=== PATIENT | male | born 1985 | race African-American/Black ===

== ENCOUNTER 2019-07-19 03:34 | Inpatient (IN) | payer OTHER ==
[~2019-07-19] VITALS: Ht 177.8 cm; Wt 145.9 kg
[2019-07-19] VITALS (12 sets, daily range): BP systolic 117–155; BP diastolic 61–100
--- NOTE | ~2019-07-19 | H ---
[facility] [place] [address] HISTORY AND PHYSICAL Name: BRANDON WASHINGTON Room #: 211-P [facility] Tru MAlvin#: [id number] Admission: 07/19/19 Attend Phys: Geovani Gaspar MD, Discharge: Date of : 85 Report #: [id number] THIS REPORT FOR: //name// CC: FAM unknown Geovani Gaspar DATE OF SERVICE: 07/19/2019 HISTORY OF PRESENT ILLNESS: The patient is a 33-year-old -[place] male, who comes to the Emergency Room, brought in by his significant other girlfriend. He does not have prior cardiac history or history of hypertension. He denies tobacco or other illicit drug usage. He was having sexual relations and subsequently he suddenly became short of breath, tachycardic and involved chest pain. This persisted and brought into the Emergency Room by his girlfriend with an inferior wall current of injury. He takes only amlodipine for hypertension. 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 He is not aware that he has elevated cholesterol. He does not have a significant family history of coronary artery disease and is a relatively young, moderately overweight male. Perhaps a slight decrease in exercise tolerance recently. His blood sugar is elevated here in the Emergency Room 145, his H and H are 15 and 46, his creatinine is 1.4. He will be taken emergently to the catheterization lab. He is having a moderate amount of chest discomfort. Aspirin, Lipitor 80 and heparin bolus have been initiated. PAST MEDICAL HISTORY: Positive only for hypertension. SOCIAL HISTORY: Single. No tobacco use. He denies any illicit drug use. 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 FAMILY HISTORY: Negative for coronary artery disease. ALLERGIES: No known drug allergies. REVIEW OF SYSTEMS: Essentially negative except for stated above. PHYSICAL EXAMINATION: VITAL SIGNS: Blood pressure 140s-150s/80s, pulse was 80s-90s. HEENT: Eyes reveal xanthelasmas. Pharynx is clear. NECK: Shows preserved upstrokes without JVD or bruits. LUNGS: Clear. CARDIOVASCULAR: Regular rate and rhythm, S1, S2 without significant murmur or gallop. ABDOMEN: Moderately obese, nontender. EXTREMITIES: Reveal no edema. Distal pulses are intact. NEUROLOGIC: Nonfocal. SKIN: Warm and dry without xanthoma or ulcer. [facility] [address] [place] [address] HISTORY AND PHYSICAL Name: BRANDON WASHINGTON Room #: 211-P [facility] Tru Mor[place]aya#: [id number] Admission: 07/19/19 Attend Phys: Geovani Gaspar MD, Discharge: Date of : 85 Report #: [id number] MUSCULOSKELETAL: No gross joint deformity. ASSESSMENT: 1. Acute inferior wall myocardial infarction. 2. Hypertension. 3. Elevated blood sugars. Suspect possible underlying diabetes. 4. Suspected hypercholesterolemia. RECOMMENDATIONS AND PLAN: As stated above, aspirin, heparin. Lipitor 80 has been initiated. We will proceed emergently the catheterization lab for possible diagnostic evaluation and possible intervention. Risks, benefits and alternatives were discussed with the patient. By: 0550 0624 /nt
--- NOTE | ~2019-07-19 | D ---
[facility] [place] [address] DISCHARGE SUMMARY Name: BRANDON WASHINGTON Room #: 211-P [facility] IN M.R.#: [id number] Admission: 07/19/19 Attend Phys: Geovani Gaspar MD, Discharge: 07/21/19 Date of : 85 Report #: [id number] THIS REPORT FOR: //name// CC: FAM unknown Geovani Gaspar DATE OF SERVICE: 07/19/2019 DISCHARGE SUMMARY HOSPITAL SUMMARY: The patient is a 33-year-old male who was admitted having an inferior wall myocardial infarction. This had occurred in the early a.m. after some intimacy. Subsequently, taken emergently to the catheterization lab, which revealed a totally occluded RCA. This was successfully dilated and stented with a 2.75 mm stent, postdilated to 3.4 mm in size and this proximal vessel is somewhat of a long lesion. This gave rise to then a high-grade lesion in the posterior lateral branch, which had a significant area of distribution. This was successfully dilated and stented with a 2.5 x 8 mm stent. The patient tolerated this well, limited troponin elevation. There was subtle inferior wall hypokinesis. The troponin did peak at 43. I expect motion of the inferior wall to return. He is up and ambulating. 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 He had mild disease in his LAD and circumflex. His sugars were not elevated. Lipids are pending, but he will be discharged on a statin. His hemoglobin A1c was 5.7. Creatinine 1.4, potassium 3.7. Troponin peak was 43. H and H 13 and 40. Lipids are currently pending. DISCHARGE MEDICATIONS: Will include aspirin, Effient 10 mg a day, Bystolic 10 mg a day, olmesartan 40 mg a day, atorvastatin 40 mg a day, and amlodipine 5 mg a day. No lifting for 48 hours. No lying in tub Jacuzzi or tompkins for a week. No MRI or dental work for 3 months. He has followup with us scheduled 08/01/2019. We expect him to be able to return to work shortly thereafter full duty. I would like him due to at least enter into outpatient cardiac rehabilitation. DISCHARGE DIAGNOSES: 1. ST segment elevated GA, acute inferior wall myocardial infarction with emergent intervention as noted above. 2. Mild ischemic cardiomyopathy of 50%. I expect this to improve. 3. Hypertension. 4. Hypercholesterolemia. 5. Some borderline blood sugar elevation. Average sugar 117. Hemoglobin A1c 5.7. 6. Mild obesity. RECOMMENDATIONS AND PLAN: Obviously, some dietary restrictions and weight loss [address] [address] DISCHARGE SUMMARY Name: BRANDON WASHINGTON Room #: 211-P DIS IN M.R.#: [id number] Admission: 07/19/19 Attend Phys: Geovani Gaspar MD, Discharge: 07/21/19 Date of : 85 Report #: [id number] and medications as above. I expect him to have a good and full recovery. We will follow him up on a regular basis. This has been discussed in detail with the patient and his significant other. By: 0922 1038 /nt
[2019-07-19] MEDS ORDERED: CLONIDINE HCL0.2 M2 PO (03:40)
--- NOTE | 2019-07-19 03:49 | NUR ---
GARCIA - GIRLFRIEND AT BEDSIDE [phone]
--- NOTE | 2019-07-19 03:54 | NUR ---
TELEPHONE REPORT TO JENNY LEGAL ANALYST RN. EN ROUTE
[2019-07-19 04:12] LABS: ABSOLUTE NEUTROPHILS 10.6 thou/uL (1.4-8.2); BASOPHILS 0.8 % (0.0-2.0); EOSINOPHILS 0.3 % (0.0-3.0); HEMATOCRIT 46.1 % (42.0-52.0); HEMOGLOBIN 15.1 gm/dL (14.0-18.0); LYMPHOCYTES 16.1 % (24.0-44.0); MCH 27.9 pg (26.0-34.0); MCHC 32.7 g/dL (28.0-37.0); MCV 85.3 fL (80.0-100.0); MONOCYTES 6.1 % (1.0-8.0); PLATELET COUNT 404 thou/uL (150-400); POLYS 76.7 % (36.0-66.0); RBC 5.41 mil/uL (4.50-6.00); RDW 13.5 % (10.5-14.5); WBC 13.8 thou/uL (4.0-11.0)
[2019-07-19 04:34] LABS: ANION GAP 11 mmol/L (7-16); BUN 13 mg/dL (7-18); CALCIUM 9.6 mg/dL (8.5-10.1); CHLORIDE 102 mmol/L (98-107); CO2 25 mmol/L (21-32); CREATININE 1.4 mg/dL (0.7-1.3); GLUCOSE 145 mg/dL (74-106); POTASSIUM 3.9 mmol/L (3.5-5.1); SODIUM 138 mmol/L (136-145)
[2019-07-19 04:43] LABS: TROPONIN-I <0.06 ng/mL (<0.06)
--- NOTE | 2019-07-19 07:57 | EKG ---
[place] [address] [facility] [place] [address] ELECTROCARDIOGRAM REPORT Name: BRANDON WASHINGTON Room #: 211-P [facility] M.R.#: [id number] Admission: 07/19/19 Attend Phys: Geovani Gaspar MD, Discharge: Date of : 85 Report #: [id number] THIS REPORT FOR: //name// [facility] ED Test Date: 2019-07-19 Test Time: 03:40:08 Pat Name: BRANDON WASHINGTON Department: Room: 211 Gender: Male Director Of Health Care Marketing: CATHERINE : 1985 Requested By: Corey Weston Order Number: [id number] MD: Camden Horton Measurements Intervals [place] Rate: 82 P: 48 NE: 180 QRS: 7 QRSD: 91 T: 141 QT: 356 QTc: 416 Interpretive Statements Sinus rhythm Inferior infarct, acute (RCA) Probable RV involvement, suggest recording right precordial leads No previous ECG available for comparison Electronically Signed On 07-19-2019 7:57:01 PIPE CREW FOREMAN by Camden Horton [email or web address] <ELECTRONICALLY SIGNED> By: Camden Horton MD 07/19/19 0757 0340 0340 Camden Horton MD /DIANA
--- NOTE | 2019-07-19 07:58 | EKG ---
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: : 1985 Requested By: Corey Weston Order Number: [id number] MD: Camden Horton Measurements Intervals [place] Rate: 88 P: 55 [place]: 183 QRS: 12 QRSD: 90 T: 137 QT: 374 QTc: 453 Interpretive Statements Sinus rhythm Inferior infarct, acute (RCA) Probable RV involvement, suggest recording right precordial leads No previous ECG available for comparison Electronically Signed On 07-19-2019 7:57:24 TIRE BLADDER MAKER by Camden Horton [email or web address] <ELECTRONICALLY SIGNED> By: Camden Horton MD 07/19/19 0757 6 6 Camden Horton MD /DIANA
--- NOTE | 2019-07-19 09:48 | CATHLAB ---
[facility] [address] [place] [address] INVASIVE PROCEDURE REPORT Name: BRANDON WASHINGTON Room #: 211-P ADM IN M.R.#: [id number] Admission: 07/19/19 Attend Phys: Geovani Gaspar, Discharge: Date of : 85 Report #: [id number] THIS REPORT FOR: //name// APPROVED REPORT Study performed: 07/19/2019 04:17:57 Patient Details Patient Status: ED Room #: The patient is a 33 year-old male Event Personnel Geovani Gaspar Pan Dumper, Ida Zelaya RN, Cha James RTR, RECRUITING ASSOCIATE Monitor, Michaela Correa Trubic, Lauren RN hvac lead Performed Art Access - R femoral artery* Left Heart Cath w/or w/o Coronaries [id number] [facility] Aortogram Abdominal Peripheral Angio 638991 WILLEM Revasc AMI Total/Sub Single RCA C9606 AMIREVSING Hemostasis w/ Mynx Indication Chest pain Procedure Narrative The Right Groin^ was infiltrated with 1% Lidocaine subcutaneous anesthesia. A PINNACLE 6FR Sheath #[id number] sheath was inserted into the RFA^. Coronary angiography was performed using coronary diagnostic catheters. The right coronary system was accessed and visualized with a 6FR 3DRC #[id number] catheter. The left coronary system was accessed and visualized with a JL4 catheter. The left ventricle was accessed and visualized with a pigtail catheter. Left ventriculogram was performed in 30 degree projection. An aortogram of the abdominal aorta was performed. Closure device was deployed with a 6 Fr MYNXGRIP 6/7F #[id number]. The patient tolerated the procedure well and there were no complications associated with the procedure. There was no hematoma. Intraoperative Conscious Sedation Sedation start time: 04:44 Case end Time: 06:15 Fentanyl 100 mcg Versed 2 mg Fluoro Time: 10.59 minutes [facility] [employer] [place] [address] INVASIVE PROCEDURE REPORT Name: BRANDON WASHINGTON Room #: 211-P [facility] IN M.R.#: [id number] Admission: 07/19/19 Attend Phys: Geovani Gaspar, Discharge: Date of : 85 Report #: [id number] Dose: DAP 82552.70 cGycm2 3230 mGy Contrast Type and Amount: Visipaque 210 ml Hemodynamics The aortic pressure is 154/115 mmHg with a mean of 133 mmHg. The left ventricular pressure is 146/21 mmHg with a mean of mmHg. The left ventricular end diastolic pressure is 33 mmHg. PCI Technique Lesion Percutaneous coronary intervention was performed on the proximal right coronary artery. A 6FR 3DRC #900114 Guide Catheter was used to engage the ostium. A Luge Wire .014 x 182CM #[id number] Interventional Guidewire was used to cross the lesion. BALLOON DILATION A Balloon catheter Sprinter OTW 2.5 x 12 #[id number] was inserted and inflated up to 6.00atm for 17seconds. Additional Inflation: 12.00atm for 24seconds. Additional Inflation: 14.00atm for 24seconds. STENT DEPLOYMENT A drug-eluting stent RESOLUTE BOOM OTW 2.75 X 18 #[id number] was inserted and inflated up to 18.00atm for 35seconds. POST STENT DEPLOYMENT BALLOON DILATION A Balloon catheter TREK NC OTW 3.25 X 12 #[id number] was inserted and inflated up to 18.00atm for 23seconds. Additional Inflation: 18.00atm for 17seconds. PCI Technique Lesion 2 Percutaneous Coronary Intervention was performed on the first right posterior lateral segment. A LAUNCHER 6FR 3D #715306 Guide Catheter was used to engage the ostium. A Luge Wire .014 x 182CM #[id number] Interventional Guidewire was used to cross the lesion. Balloon Dilation A Balloon catheter Sprinter OTW 2.5 x 12 #[id number] was inserted and inflated up to 8.00atm for 25seconds. Additional Inflation: 8.00atm for 22seconds. Additional Inflation: 10.00atm for 34seconds. Stent Deployment A drug-eluting stent RESOLUTE BOOM OTW 2.5 X 8 #[id number] was inserted and inflated up to 10.00atm for 25seconds. Additional Inflation: 16.00atm for 21seconds. Conclusion #1 successful emergent PTCA stent of a proximal RCA occlusion [address] [address] INVASIVE PROCEDURE REPORT Name: BRANDON WASHINGTON Room #: 211-P ADM IN M.R.#: [id number] Admission: 07/19/19 Attend Phys: Geovani Gaspar, Discharge: Date of : 85 Report #: [id number] dominant vessel. Placement of a 2.75 x 18 resolute drug-eluting stent postdilated 3.4 mm in size with noncompliant balloon 0% residual KIM grade 3 flow #2 successful PTCA stent of a proximal posterior lateral branch off of this dominant right 98% to 0% with a 2.5 x 8 resolute drug-eluting stent postdilated 2.7 mm KIM grade 3 flow #3 left main large free of disease giving rise to LAD and circumflex #4 LAD extends around the apex with mild distal diffuse disease #5 a circumflex nondominant but moderate distribution with mild diffuse distal disease #6 ramus intermedius branch with mild disease #7 normal left ventricular size with inferior basilar hypokinesis EF 50% range #8 abdominal aortogram revealing widely patency of this aorta no aneurysm a dual supply to the left kidney single right kidney artery widely patent Recommendations and plan: Continue aggressive risk factor modification. Dual antiplatelet therapy indefinitely. Patient will maintain Integrilin drip on transfer back to CCU to follow post stent protocol. Pain-free with near resolution of EKG changes. <ELECTRONICALLY SIGNED> By: Geovani Gaspar MD, FACC 07/19/1948 7 Geovani Gaspar MD, FACC /INF
--- NOTE | 2019-07-19 12:47 | 2DMMODE ---
[facility] [address] [place] [address] 2 D/M-MODE ECHOCARDIOGRAM Name: BRANDON WASHINGTON Room #: 211-P ADM IN M.R.#: [id number] Admission: 07/19/19 Attend Phys: Geovani Gaspar, Discharge: Date of : 85 Report #: [id number] THIS REPORT FOR: //name// APPROVED REPORT Study performed: 07/19/2019 10:24:11 EXAM: Comprehensive 2D, Doppler, and color-flow Echocardiogram Patient Location: Bedside Room #: 211 Status: routine BSA: 2.46 HR: 97 bpm BP: 137/81 mmHg Rhythm: NSR Other Information Study Quality: Adequate Indications CAD Hypertension/HDD STEMI 2D Dimensions IVSd: 14.16 (7-11mm) LVOT Diam: 20.91 (18-24mm) LVDd: 51.13 mm PWd: 13.62 (7-11mm) Ascending Ao: 32.80 (22-36mm) LVDs: 38.08 (25-40mm) Aortic Root: 31.89 mm IVC: 16.00 mm Volumes Left Atrial Volume (Systole) Single Plane 4CH: 70.61 mL Single Plane 2CH: 49.73 mL LA ESV Index: 26.00 mL/m2 Aortic Valve AoV Peak Jamie.: 0.99 m/s AO Peak Gr.: 3.89 mmHg LVOT Max P.66 mmHg LVOT Max V: 0.64 m/s ESPERANZA Vmax: 2.24 cm2 Mitral Valve E/A Ratio: 1.7 MV Decel. Time: 199.54 ms [facility] [address] [place] [address] 2 D/M-MODE ECHOCARDIOGRAM Name: BRANDON WASHINGTON Room #: 211-P [facility] IN .R.#: [id number] Admission: 07/19/19 Attend Phys: Geovani Gaspar, Discharge: Date of : 85 Report #: [id number] MV E Max Jamie.: 0.83 m/s MV A Jamie.: 0.48 m/s MV PHT: 57.87 ms IVRT: 115.34 ms Pulmonary Valve PV Peak Jamie.: 0.65 m/s PV Peak Gr.: 1.66 mmHg Pulmonary Vein P Vein S: 0.39 m/s P Vein A: 0.13 m/s P Vein D: 0.19 m/s P Vein A Dur.: 92.3 msec P Vein S/D Ratio: 2.05 Tricuspid Valve TR Peak Jamie.: 2.03 m/s TR Peak Gr.: 16.55 mmHg PA Pressure: 22.00 mmHg Left Ventricle The left ventricle is normal size. Inferior and inferoseptal wall hypokinesis Mild concentric left ventricular hypertrophy. Left ventricular systolic function is mildly decreased. LVEF is 45%. Moderate diastolic dysfunction is present (pseudonormal filling). Right Ventricle The right ventricle is normal size. The right ventricular systolic function is normal. Atria The left atrium size is normal. The right atrium size is normal. Aortic Valve The aortic valve is normal in structure. No aortic regurgitation is present. There is no aortic valvular stenosis. Mitral Valve The mitral valve is normal in structure. Mild mitral valve regurgitation No evidence of mitral valve stenosis. Tricuspid Valve The tricuspid valve is normal in structure. There is trace tricuspid regurgitation. Estimated PAP 22 mmHg. There is no pulmonary hypertension. [facility] [employer] [place] [address] 2 D/M-MODE ECHOCARDIOGRAM Name: BRANDON WASHINGTON Room #: 211-P ADM IN M.R.#: [id number] Admission: 07/19/19 Attend Phys: Geovani Gaspar, Discharge: Date of : 85 Report #: [id number] Pulmonic Valve The pulmonary valve is normal in structure. There is no pulmonic valvular regurgitation. Great Vessels The aortic root is normal in size. IVC is normal in size and collapses >50% with inspiration. Pericardium There is no pericardial effusion. <Conclusion> Left ventricular systolic function is mildly decreased. Inferior and inferoseptal wall hypokinesis LVEF is 45%. Moderate diastolic dysfunction Mild concentric left ventricular hypertrophy. The aortic valve is normal in structure. No aortic regurgitation or stenosis The mitral valve is normal in structure. Mild mitral valve regurgitation There is trace tricuspid regurgitation. Estimated pulmonary artery pressure of 22 mmHg. There is no pericardial effusion. <ELECTRONICALLY SIGNED> By: Leobardo Morales MD, FACC 07/19/19 1246 1246 1246 Leobardo Morales MD, FACC /INF
[2019-07-19 15:58] LABS: CALCIUM 8.6 mg/dL (8.5-10.1); CREATININE 1.3 mg/dL (0.7-1.3); POTASSIUM 4.2 mmol/L (3.5-5.1)
[2019-07-19 16:04] LABS: ALBUMIN 3.3 g/dL (3.4-5.0); MAGNESIUM 1.6 mg/dL (1.8-2.4); TOTAL BILIRUBIN 0.4 mg/dL (<0.1-1.0); TOTAL PROTEIN 7.1 g/dL (6.4-8.2)
--- NOTE | 2019-07-19 17:24 | NUR ---
ASSUMED CARE OF PT AT SHIFT CHANGE. ASSSESSMENTS CHARTED.MEDS GIVEN PER SEP. VSS. NO C/O PAIN. ON RA. PT A&OX4. R GROIN SITE DRESSING HAD A SMALL AMT OF BLOOD AT SHIFT CHANGE. NO FURTHER BLEEDING HAS BEEN NOTES. ON MONITOR PT HAS SHOWN SEVERAL RUNS OF VTACH AND PVCS. LUIS FERNANDO ZHU NOTIFIED. BEGAN MAG REPLACEMENT. WILL CONTINUE TO MONITOR AND FOLLOW POC.
[2019-07-20 00:06] LABS: GLYCOHEMOGLOBIN (HGB A1C) 5.7 % (4.8-5.6)
[2019-07-20 04:40] VITALS: BP 127/77
[2019-07-20 05:56] LABS: HEMATOCRIT 40.4 % (42.0-52.0); HEMOGLOBIN 13.3 gm/dL (14.0-18.0); MCH 28.1 pg (26.0-34.0); MCV 85.3 fL (80.0-100.0); RBC 4.74 mil/uL (4.50-6.00); RDW 13.6 % (10.5-14.5); WBC 10.2 thou/uL (4.0-11.0)
[2019-07-20 06:18] LABS: ALBUMIN 3.1 g/dL (3.4-5.0); CALCIUM 8.2 mg/dL (8.5-10.1); CREATININE 1.4 mg/dL (0.7-1.3); POTASSIUM 3.7 mmol/L (3.5-5.1); TOTAL BILIRUBIN 0.5 mg/dL (<0.1-1.0); TOTAL PROTEIN 6.6 g/dL (6.4-8.2)
[2019-07-20 06:44] LABS: TROPONIN-I 43.36 ng/mL (<0.06)
[2019-07-20 08:34] VITALS: BP 120/50
[2019-07-20 08:36] VITALS: BP 130/104
[2019-07-20 12:11] VITALS: BP 153/118
--- NOTE | 2019-07-20 17:12 | EKG ---
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1985 Requested By: Lulú Crystal Order Number: [id number] MD: Camden Horton Measurements Intervals [place] Rate: 75 P: 45 NH: 165 QRS: -1 QRSD: 84 T: -40 QT: 390 QTc: 436 Interpretive Statements Sinus rhythm Borderline T abnormalities, diffuse leads Compared to ECG 07/19/2019 04:07:08 T-wave abnormality now present Myocardial infarct finding no longer present Electronically Signed On 07-20-2019 17:11:59 PRODUCE TEAM MEMBER by Camden Horton [email or web address] <ELECTRONICALLY SIGNED> By: Camden Horton MD 07/20/19 1711 4 Camden Horton MD /DIANA
[2019-07-20 18:20] VITALS: BP 149/107
--- NOTE | 2019-07-20 20:21 | NUR ---
ASSUMED CARE OF PT AT SHIFT CHANGE. ASSESSMENTS CHARTED. MEDS GIVEN PER SEP. VSS. NO C/O PAIN. PT A&OX4. GROIN SITE CDI. PT IN NO DISTRSS.
[2019-07-20 20:23] VITALS: BP 154/101
[2019-07-21 04:02] VITALS: BP 139/91
--- NOTE | 2019-07-21 04:35 | NUR ---
PT PO DAY2 S/P CARDIAC CATH. ALERT AND ORIENTED. VITAL STABLE WITH ELEVATED BP. DENIES PAIN. PERIODIC EPISODES OF VTACH RECORDED OR MONITOR. PT DENIES SYMPTOMS OF CHEST PAIN OR PALPITATIONS.NO FURTHER CONCERNS. PT ANTICIPATED TO DC TODAY, THIS AM.
[2019-07-21 07:20] VITALS: BP 158/115
[2019-07-21] MEDS ORDERED: BENICAR40 MG PO (08:09)
[2019-07-21] MEDS ORDERED: EFFIENT10 MG PO (08:09)
[2019-07-21] MEDS ORDERED: BYSTOLIC10 MG PO (08:09)
[2019-07-21] MEDS ORDERED: LIPITOR40 MG PO (08:09)
[2019-07-21] MEDS ORDERED: ASPIRIN325 PO (08:09)
[2019-07-21 09:13] VITALS: BP 158/115
--- NOTE | 2019-07-21 10:24 | NUR ---
AAOX4. DR. BERG HERE, DISCHARGING PATIENT. SR PER TELE. DENIES CP. DISCHARGE INSTRUCTIONS GIVEN.
[2019-07-21 14:04] LABS: CHOLESTEROL 199 mg/dL (<200); HDL CHOLESTEROL 43 mg/dL (>40); LDL CHOLESTEROL 143 mg/dL (<100); TC:HDL 4.6 Ratio (Not establshd); TRIGLYCERIDE 69 mg/dL (<150); VLDL 14 mg/dL (<40)
== END 2019-07-21 10:26 | disposition home or self-care (01) | DRG 246 ==
LOC: ER 03:34 → 2N 04:27 → TBACV 04:27 → 2N 04:27 → ER 04:29 → 2N 04:29
PROVIDERS: Emergency Medicine; Nurse Practitioner Adult Health; ADMIT Internal Medicine Cardiovascular Disease
PROC: B410YZZ Fluoroscopy of Abdominal Aorta using Other Contrast (ICD-10-PCS; principal; 2019-07-19)
PROC: 4A023N7 Measurement of Cardiac Sampling and Pressure, Left Heart, Percutaneous Approach (ICD-10-PCS; principal; 2019-07-19)
PROC: B215YZZ Fluoroscopy of Left Heart using Other Contrast (ICD-10-PCS; principal; 2019-07-19)
PROC: 027135Z Dilation of Coronary Artery, Two Arteries with Two Drug-eluting Intraluminal Devices, Percutaneous Approach (ICD-10-PCS; principal; 2019-07-19)
PROC: B211YZZ Fluoroscopy of Multiple Coronary Arteries using Other Contrast (ICD-10-PCS; principal; 2019-07-19)
DX: I21.19 ST elevation (STEMI) myocardial infarction involving other coronary artery of inferior wall (principal); I50.41 Acute combined systolic (congestive) and diastolic (congestive) heart failure; Z68.42 Body mass index [BMI] 45.0-49.9, adult; I47.1 Supraventricular tachycardia; E66.01 Morbid (severe) obesity due to excess calories; I25.5 Ischemic cardiomyopathy; E78.00 Pure hypercholesterolemia, unspecified; R73.03 Prediabetes; E83.42 Hypomagnesemia; Z79.899 Other long term (current) drug therapy; Z79.82 Long term (current) use of aspirin; I11.0 Hypertensive heart disease with heart failure
CPT/HCPCS: 10081

== ENCOUNTER → 2019-08-16 | Outpatient (CLI) | payer OTHER ==
[~2019-08-16] MED LIST: ASPIRIN325 PO; BENICAR40 MG PO; BYSTOLIC10 MG PO; CLONIDINE HCL0.2 M2 PO; EFFIENT10 MG PO; LIPITOR40 MG PO
== END | disposition home or self-care (01) ==
LOC: SJCVC 08-05 10:22 → SJCVCIMAG 13:04
DX: I25.10 Atherosclerotic heart disease of native coronary artery without angina pectoris (principal); E78.00 Pure hypercholesterolemia, unspecified; I10 Essential (primary) hypertension; R94.31 Abnormal electrocardiogram [ECG] [EKG]